=== PATIENT | male | born 1995 | race Caucasian/White ===

== ENCOUNTER 2018-01-08 17:46 | Emergency (ER) | payer OTHER ==
--- NOTE | 2018-01-08 18:14 | EDPHY ---
H & P Stated Complaint: GERD Time Seen by Provider: 01/08/18 18:14 HPI/ROS: HPI: This is a 22-year-old male who presents with Chief Complaint: GERD Location: Esophagus, epigastric Quality: Burning pain Duration: 2 days Signs and Symptoms: no fever, + nausea, + self-induced vomiting, no hematemesis , no blood in stool, no abdominal bloating, no diarrhea, no back pain, no urinary symptoms, no testicular/groin pain, no indigestion, no chest pain, no shortness of breath Timing: Acute Severity: Moderate Context: Patient has a history of anxiety, gastroesophageal reflux disease presents with 2 day history of burning esophagus and epigastric pain that radiates up into his throat. The patient reports that he ate [employer] at 5:00 p.m. Yesterday and drank alcohol yesterday. He has tried Tums without any relief of his symptoms. Today because he felt so nauseous he self-induced vomiting x5 times. He reports no relief of the burning sensation. Modifying Factors: Tums with no relief Comment: ROS: A comprehensive 10 system review of systems is otherwise negative aside from elements mentioned in the history of present illness. MEDICAL/SURGICAL/SOCIAL HISTORY: Medical history: ADHD, ANXIETY Surgical history: Knee arthroscopy Social history: Nonsmoker. Family history noncontributory. CONSTITUTIONAL: Extremely well-appearing young adult white male, awake and alert, no obvious distress HEENT: Atraumatic and normocephalic, PERRL, EOMI. Nares patent; no rhinorrhea; no nasal mucosal edema. Tympanic membranes clear. Oropharynx clear, no exudate and moist pink mucosa. Airway patent. No lymphadenopathy. No meningismus. Cardiovascular: Normal S1/S2, tachycardia, regular rhythm, without murmur rub or gallop. PULMONARY/CHEST: Symmetrical and nontender. Clear to auscultation bilaterally. Good air movement. No accessory muscle usage. ABDOMEN: Soft, nondistended, mild epigastric tenderness, no rebound, no guarding, no peritoneal signs, no masses or organomegaly. No CVAT. EXTREMITIES: 2/2 pulses, strength 5/5, no deformities, no clubbing, no cyanosis or edema. NEUROLOGICAL: no focal neuro deficits. GCS 15. SKIN: Warm and dry, no erythema. no rash. Good capillary refill. Source: Patient Exam Limitations: No limitations - Personal History Current Tetanus/Diphtheria Vaccine: Yes - Medical/Surgical History Hx Asthma: No Hx Chronic Respiratory Disease: No Hx Diabetes: No Hx Cardiac Disease: No Hx Renal Disease: No Hx Cirrhosis: No Hx Alcoholism: No Hx HIV/AIDS: No Hx Splenectomy or Spleen Trauma: No Other PMH: KNEE REPAIRS, ADHD, ANXIETY. - Social History Smoking Status: Never smoked Constitutional: Initial Vital Signs Temperature (C) 36.6 C 01/08/18 17:49 Heart Rate 103 H 01/08/18 17:49 Respiratory Rate 16 01/08/18 17:49 Blood Pressure 153/93 H 01/08/18 17:49 O2 Sat (%) 94 01/08/18 17:49 O2 Delivery Mode Room Air Allergies/Adverse Reactions: No Known Allergies Allergy (Unverified 01/08/18 17:50) Home Medications: Medication Instructions Recorded Amphet Asp and D/Amphet [Adderall 10 mg PO DAILY 12/04/15 10 MG (*)] Diazepam [Valium] 5 mg PO 12/04/15 Pantoprazole Sodium [Protonix 40mg 40 mg PO BID #14 tab 01/08/18 (*)] Sucralfate [Carafate 1 GM (*)] 1 gm PO ACHS 7 Days tab 01/08/18 Medical Decision Making - Diagnostics Imaging Results: Imaging Impressions Chest X-Ray 01/08/18 18:24 Impression: No pneumonia. ED Course/Re-evaluation: Vital signs reviewed and show mild tachycardia. IV access and laboratory studies including chest x-ray ordered Given 2 L normal saline, IV Protonix 80 mg, IV promethazine 12.5 mg and GI cocktail Suspect GERD with esophagitis without hemorrhage 1845: Labs reviewed. No signs of leukocytosis/anemia/platelet dysfunction/JULIANA/ elevated LFTs/electrolyte imbalance/pancreatitis. Wells criteria is low risk for pulmonary embolism. Heart score equals low risk for acute coronary syndrome. 1926: Reassessed patient who reports 50% relief of symptoms. Chest x-ray my read shows no opacity, no effusion, no free air/perforation. Given a prescription for Protonix and Carafate with gastroenterology follow-up. This patient was seen under the supervision of my secondary supervising physician. I evaluated care for this patient independently. Discussed this patient with Dr. Lewis who did not see the patient. Differential Diagnosis: Abdominal pain including but not limited to appendicitis, cholecystitis, gastritis and urinary tract infection. - Data Points Laboratory Results: Laboratory Results 01/08/18 18:15 12 18:15 01/08/18 12 18:15 18:15 WBC 7.50 10^3/uL 10^3/uL (3.80-9.50) RBC 6.38 10^6/uL 10^6/uL (4.40-6.38) Hgb 19.9 g/dL H g/dL (13.7-17.5) Hct 56.4 % H % (40.0-51.0) MCV 88.4 fL fL (81.5-99.8) MCH 31.2 pg pg (27.9-34.1) MCHC 35.3 g/dL g/dL (32.4-36.7) RDW 11.6 % % (11.5-15.2) Plt Count 296 10^3/uL 10^3/uL (150-400) MPV 9.9 fL fL (8.7-11.7) Neut % (Auto) 76.3 % H % (39.3-74.2) Lymph % (Auto) 14.0 % L % (15.0-45.0) Mora % (Auto) 8.5 % % (4.5-13.0) Eos % (Auto) 0.8 % % (0.6-7.6) Baso % (Auto) 0.3 % % (0.3-1.7) Nucleat RBC Rel Count 0.0 % % (0.0-0.2) Absolute Neuts (auto) 5.72 10^3/uL 10^3/uL (1.70-6.50) Absolute Lymphs (auto) 1.05 10^3/uL 10^3/uL (1.00-3.00) Absolute Monos (auto) 0.64 10^3/uL 10^3/uL (0.30-0.80) Absolute Eos (auto) 0.06 10^3/uL 10^3/uL (0.03-0.40) Absolute Basos (auto) 0.02 10^3/uL 10^3/uL (0.02-0.10) Absolute Nucleated RBC 0.00 10^3/uL 10^3/uL (0-0.01) Immature Gran % 0.1 % % (0.0-1.1) Immature Gran # 0.01 10^3/uL 10^3/uL (0.00-0.10) Sodium 139 mEq/L mEq/L (135-145) Potassium 4.2 mEq/L mEq/L (3.5-5.2) Chloride 100 mEq/L mEq/L (97-110) Carbon Dioxide 25 mEq/l mEq/l (22-31) Anion Gap 14 mEq/L mEq/L (6-14) BUN 9 mg/dL mg/dL (7-23) Creatinine 1.0 mg/dL mg/dL (0.7-1.3) Estimated GFR > 60 Glucose 100 mg/dL mg/dL (70-100) Calcium 10.2 mg/dL mg/dL (8.5-10.4) Total Bilirubin 1.0 mg/dL mg/dL (0.1-1.4) Conjugated Bilirubin 0.3 mg/dL mg/dL (0.0-0.5) Unconjugated Bilirubin 0.7 mg/dL mg/dL (0.0-1.1) AST 56 IU/L IU/L (17-59) ALT 94 IU/L H IU/L (21-72) Alkaline Phosphatase 58 IU/L IU/L (38-126) Total Protein 8.4 g/dL H g/dL (6.3-8.2) Albumin 5.5 g/dL H g/dL (3.5-5.0) Lipase 55 IU/L IU/L (23-300) Medications Given: Pantoprazole Sodium (Protonix) 40 mg IVP ONCE ONE Stop: 01/09/18 18:25 Last Admin: 01/08/18 18:37 Dose: 40 mg Discontinued Medications Al Hydroxide/Mg Hydroxide (Maalox Susp) 30 ml PO ONCE ONE Stop: 01/08/18 18:24 Last Admin: 01/08/18 18:31 Dose: 30 ml Hyoscyamine Sulfate (Levsin, Hyomax-Sl) 0.25 mg PO ONCE ONE Stop: 01/08/18 18:24 Last Admin: 01/08/18 18:31 Dose: 0.25 mg Sodium Chloride (Ns) 1,000 mls @ 0 mls/hr IV EDNOW ONE; Wide Open PRN Reason: Protocol Stop: 01/08/18 18:24 Last Admin: 01/08/18 18:31 Dose: 1,000 mls Sodium Chloride (Ns) 1,000 mls @ 0 mls/hr IV EDNOW ONE; Wide Open PRN Reason: Protocol Stop: 01/08/18 18:24 Last Admin: 01/08/18 18:31 Dose: 1,000 mls Lidocaine (Lidocaine 2% Viscous) 15 ml PO ONCE ONE Stop: 01/08/18 18:24 Last Admin: 01/08/18 18:31 Dose: 15 ml Promethazine HCl (Phenergan) 12.5 mg IVP EDNOW ONE Stop: 01/08/18 18:24 Last Admin: 01/08/18 18:32 Dose: 12.5 mg Departure - Departure Disposition: Home, Routine, Self-Care Clinical Impression: Gastroesophageal reflux disease with esophagitis Condition: Good Instructions: Diet for Stomach Ulcers and Gastritis (ED), Gastroesophageal Reflux Disease (ED), Upper Endoscopy (DC) Additional Instructions: Consume a minimum of 8-10 glasses of water or electrolyte fluid replacement drinks that include Gatorade, Powerade, Pedialyte. Eat a bland diet for the next 48 hours and then slowly advance as tolerated. Follow GERD/stomach ulcer diet. Take Protonix 40 mg twice daily x 7 days and then 40 mg at bedtime there after. Take Carafate 4 times a day for the next 7 days. Follow-up with Gastroenterology in the next 1-2 weeks to determine candidacy for EGD. Referrals: Bethany Wilson PA [Primary Care Provider] - As per Instructions Isak Tse MD [Medical Doctor] - As per Instructions Prescriptions: Pantoprazole Sodium [Protonix 40mg (*)] 40 mg PO BID #14 tab Sucralfate [Carafate 1 GM (*)] 1 gm PO ACHS 7 Days tab
[2018-01-08] MEDS ORDERED: MAG HYDROX/AL HYDROX/SIMETH 30 ML UDCUP PO ONE (18:23)
[2018-01-08] MEDS ORDERED: NS 1,000 ML IV ONE ×2 (18:23)
[2018-01-08] MEDS ORDERED: LIDOCAINE 2% VISCOUS 15 ML UDCUP PO ONE (18:23)
[2018-01-08] MEDS ORDERED: PROMETHAZINE HCL 25 MG/ML INJ IVP ONE (18:23)
[2018-01-08] MEDS ORDERED: HYOSCYAMINE SULFATE 0.125 MG TAB PO ONE (18:23)
[2018-01-08] MEDS ORDERED: PANTOPRAZOLE SODIUM 40 MG VIAL ONE (18:35)
[2018-01-08 18:36] LABS: PLATELET COUNT 296 10^3/uL (150-400)
[2018-01-08 19:36] VITALS: BP 144/88
[2018-01-09] MEDS ORDERED: PANTOPRAZOLE SODIUM 40 MG VIAL IVP ONE (18:24)
== END 2018-01-08 19:35 | disposition home or self-care (01) ==
DX: K21.0 Gastro-esophageal reflux disease with esophagitis (principal)
CPT/HCPCS: 96374; J2550